=== PATIENT | male | born 1940 | race Caucasian/White ===

== ENCOUNTER 2020-09-09 18:19 | Emergency (ER) | payer MEDICARE, OTHER ==
[2020-09-09 18:25] VITALS: BP 134/76; PULSE 75
[2020-09-09] MEDS ORDERED: Bacitracin Oint 1 GM U/D Packet TOP ONE (18:47)
[2020-09-09] MEDS ORDERED: Lidocaine 1% with EPINEPHrine 1:100,000 50 ML MDV SUBCUT STA (18:47)
--- NOTE | 2020-09-09 18:52 | EDM.PDOC ---
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 He hit the back of his head he does have active bleeding does take an aspirin no loss of consciousness Head Pain Score (Numeric/FACES): 3 - Related Data Allergies Allergy/AdvReac Type Severity Reaction Status Date / Time ibuprofen Allergy Other Verified 09/09/20 18:29 latex Allergy Rash Verified 09/09/20 18:29 Home Meds: Home Meds Aspirin 81 mg PO DAILY 04/14/16 [History] Finasteride 5 mg PO DAILY 04/14/16 [History] Levothyroxine 125 mcg PO DAILY 04/14/16 [History] Alendronate Sodium 70 mg PO ASDIRECTED 09/09/20 [History] Budesonide/Formoterol Fumarate [Budesonide-Formoterol 160-4.5] 10.2 gm IH BID 09/09/20 [History] DULoxetine [Cymbalta] 30 mg PO DAILY 09/09/20 [History] Diltiazem [Dilacor XR] 180 mg PO DAILY 09/09/20 [History] Lactobacillus Acidophilus [Acidophilus] 1 tab PO DAILY 09/09/20 [History] Melatonin 10 mg PO BEDTIME 09/09/20 [History] Mirtazapine 15 mg PO BEDTIME 09/09/20 [History] Multivitamin [Multivitamins] 1 tab PO DAILY 09/09/20 [History] Sennosides/Docusate Sodium [Docusate Sodium-Sennosides Tab] 1 tab PO BID 09/09/20 [History] Tamsulosin [Flomax] 0.4 mg PO DAILY 09/09/20 [History] polyethylene glycoL 3350 [MiraLAX] 1 dose PO ASDIRECTED 09/09/20 [History] Past Medical History HEENT History: Reports: Cataract Cardiovascular History: Reports: Arrhythmia Other Cardiovascular History: oblation Respiratory History: Reports: COPD Gastrointestinal History: Reports: Hiatal Hernia Genitourinary History: Reports: BPH Musculoskeletal History: Reports: Fracture Neurological History: Reports: CVA Psychiatric History: Reports: Depression Endocrine/Metabolic History: Reports: Hypothyroidism Dermatologic History: Reports: Decubitus Ulcer - Infectious Disease History Infectious Disease History: Reports: C-Difficile, Chicken Pox, Measles - Past Surgical History HEENT Surgical History: Reports: Tonsillectomy Cardiovascular Surgical History: Reports: Cardiac Ablation GI Surgical History: Reports: Cholecystectomy, Hernia Repair/Other Musculoskeletal Surgical History: Reports: Knee Replacement Social & Family History - Tobacco Use Tobacco Use Status *Q: Never Tobacco User - Caffeine Use Caffeine Use: Reports: Coffee - Recreational Drug Use Recreational Drug Use: No ED ROS GENERAL - Review of Systems Review Of Systems: See Below Constitutional: Reports: No Symptoms Respiratory: Reports: No Symptoms Cardiovascular: Reports: No Symptoms GI/Abdominal: Reports: No Symptoms Skin: Reports: Wound ED EXAM, HEAD INJURY - Physical Exam Exam: See Below Exam Limited By: No Limitations General Appearance: Alert, WD/WN, No Apparent Distress Head: Normocephalic, Scalp Hematoma, Other Nexus Criteria: No: Posterior, Midline Cervical Tenderness, Evidence of Intoxication, Altered Level of Consciousness, Focal Neurological Deficit, Painful Distraction Injuries Eyes: Bilateral Eye: Normal Inspection Respiratory: No Respiratory Distress ED LACERATION/WOUND & PILY PROC - Laceration/Wound Repair Head Lac/wound length in cm: 4 Appearance: Subcutaneous, Linear Distal NVT: Neuro & Vascular Intact, No Tendon Injury Anesthetic Type: Local Local Anesthesia - Lidocaine (Xylocaine): 1% with EPI Local Anesthetic Volume: 2cc Skin Prep: Saline Saline irrigation (cc's): 120 Exploration/Debridement/Repair: Wound Explored, In a Bloodless Field, Explored to Base Closed with: [place] # of Sutures: 5 Sterile Dressing Applied: Nurse Tetanus Status Addressed: Yes (today) Complications: No Course - Vital Signs Last Recorded V/S: Last Vital Signs Temp 97.2 F 09/09/20 18:26 Pulse 75 09/09/20 18:26 Resp 16 09/09/20 18:26 BP 134/76 09/09/20 18:26 Pulse Ox 95 09/09/20 18:26 - Orders/Labs/Meds Orders: Active Orders 24 hr Category Date Time Status Vaccines to be Administered [RC] PER UNIT ROUTINE Care 09/09/20 18:59 Active Meds: Medications Discontinued Medications Generic Name Dose Route Start Last Admin Trade Name Tiago PRN Reason Stop Dose Admin Bacitracin 1 dose 09/09/20 18:47 09/09/20 18:56 Bacitracin Oint 1 Gm TOP 09/09/20 18:48 1 dose ONETIME ONE Administration Diphtheria/Tetanus/Acell Pertussis 0.5 ml 09/09/20 18:58 09/09/20 19:04 Boostrix IM 09/09/20 18:59 0.5 ml .ONCE ONE Administration Lidocaine/Epinephrine 20 ml 09/09/20 18:47 09/09/20 18:55 Xylocaine 1% With Epinephrine 1:100,000 SUBCUT 09/09/20 18:48 20 ml NOW STA Administration Departure - Departure Time of Disposition: 20:15 Disposition: Home, Self-Care 01 Condition: Fair Clinical Impression: Scalp laceration Qualifiers: Encounter type: initial encounter Qualified Code(s): S01.01XA - Laceration without foreign body of scalp, initial encounter Head injury Qualifiers: Encounter type: initial encounter Qualified Code(s): S09.90XA - Unspecified injury of head, initial encounter - Discharge Information Instructions: Laceration Care, Adult Referrals: PCP,None [Ordering Only Provider] - Forms: ED Department Discharge Additional Instructions: Staple removal in 10 days, follow wound care instruction sheet, follow head i njury guidelines, return to the clinic or emergency department to have your amaris removed Sepsis Event Note (ED) - Evaluation Sepsis Screening Result: No Definite Risk - Focused Exam Vital Signs: Vital Signs Temp Pulse Resp BP Pulse Ox 09/09/20 18:26 97.2 F 75 16 134/76 95 09/09/20 18:24 97.2 F 75 16 134/76 95 - My Orders Last 24 Hours: My Active Orders 09/09/20 18:59 Vaccines to be Administered [RC] PER UNIT ROUTINE - Assessment/Plan Last 24 Hours: My Active Orders 09/09/20 18:59 Vaccines to be Administered [RC] PER UNIT ROUTINE Plan: Assessment Acuity = acute Site and laterality = scalp laceration 5 cm Etiology = fall at home Manifestations = none Location of injury = Home Lab values = CT scan of the head shows no acute process Plan Staple removal in 10 days, follow wound care instruction sheet This note was dictated using dragon voice recognition software please call with any questions on syntax or grammar.
[2020-09-09] MEDS ORDERED: Diphtheria,Pertussis(Acell),Tetanus Vaccine 0.5 ML Syringe IM ONE (18:58)
--- NOTE | 2020-09-09 19:47 | CRLCT ---
Indication: Head injury. Technique: Multiple contiguous axial images were obtained from the skullbase to the vertex without intravenous contrast enhancement. Please note that all CT scans at this facility use dose modulation, iterative reconstruction, and/or weight-based dosing when appropriate to reduce radiation dose to as low as reasonably achievable. Comparison: None Findings: The ventricles are enlarged consistent with the sizes sulci. Confluent areas of low attenuation identified within the periventricular white matter. The basal cisterns are widely patent. No intra-axial or extra-axial hemorrhage is identified. No mass, mass effect or midline shift is seen. Encephalomalacia is identified within the right occipital lobe, consistent with a prior infarct in this region. Surgical amaris are identified along the vertex extending posteriorly. No underlying bony fracture is identified. Impression: No acute intracranial process. Diffuse volume loss. Changes of chronic small vessel ischemia. Encephalomalacia in the right occipital lobe. Please note that all CT scans at this facility use dose modulation, iterative reconstruction, and/or weight-based dosing when appropriate to reduce radiation dose to as low as reasonably achievable. Dictated by Yoselin Sim MD @ Sep 09 2020 7:37PM Signed by Dr. Yoselin Sim @ Sep 09 2020 7:45PM
== END 2020-09-09 20:30 | disposition home or self-care (01) ==
LOC: JP.ED 18:19
DX: S01.01XA Laceration without foreign body of scalp, initial encounter (principal); J44.9 Chronic obstructive pulmonary disease, unspecified; N40.0 Benign prostatic hyperplasia without lower urinary tract symptoms; F32.9 Major depressive disorder, single episode, unspecified; E03.9 Hypothyroidism, unspecified; Z79.899 Other long term (current) drug therapy; Z88.6 Allergy status to analgesic agent; Z86.73 Personal history of transient ischemic attack (TIA), and cerebral infarction without residual deficits; Z91.040 Latex allergy status; Z79.82 Long term (current) use of aspirin; Z23 Encounter for immunization; W19.XXXA Unspecified fall, initial encounter
CPT/HCPCS: 12002; 70450; 90471; 90715; 99284-25